=== PATIENT | male | born 1975 | race Caucasian/White ===

== ENCOUNTER → 2017-07-13 | Outpatient (CLI) | payer BC ==
[~2017-07-13] MED LIST: ACE3 PO; ACET-1966 PO; CHOL500025 PO; CLIN300C99 PO; DOCU-416 PO; FERR159T PO; HYDR-385 PO; IBUP-56 PO; IBUP100T52 PO; METH500T6 PO; MOM PO; MV-M1TAB19 PO; OMEG-11 PO; OMEG300C PO
[2017-07-13 09:27] LABS: LDL CHOLESTEROL 118 mg/dl
== END ==
LOC: LAB 08:45
PROVIDERS: ATTEND Family Medicine
DX: E55.9 Vitamin D deficiency, unspecified (principal)
CPT/HCPCS: 36415; 82040; 82247; 82306; 82310; 82374; 82435; 82465; 82565; 82947; 83718; 84075; 84132; 84155; 84295; 84450; 84460; 84478; 84520

== ENCOUNTER → 2018-03-22 | Outpatient (CLI) | payer BC ==
[2018-03-22 09:38] LABS: PLATELET COUNT, AUTOMATED 394 K/uL (150-450)
[2018-03-22 09:55] LABS: LDL CHOLESTEROL 111 mg/dl
== END ==
LOC: LAB 09:20
PROVIDERS: ATTEND Family Medicine
DX: E78.5 Hyperlipidemia, unspecified (principal); D50.9 Iron deficiency anemia, unspecified; E55.9 Vitamin D deficiency, unspecified
CPT/HCPCS: 36415; 82040; 82247; 82306; 82310; 82374; 82435; 82465; 82565; 82728; 82947; 83540; 83718; 84075; 84132; 84155; 84295; 84450; 84460; 84478; 84520; 85025

== ENCOUNTER → 2018-08-08 | Outpatient (CLI) | payer BC | LOC: RESP 08:11 | PROVIDERS: ATTEND Internal Medicine | DX: J98.4 Other disorders of lung (principal) | CPT/HCPCS: 94060; 94726; 94729 ==

== ENCOUNTER → 2018-08-16 | Outpatient (CLI) | payer BC | LOC: LAB 11:05 | PROVIDERS: ATTEND Internal Medicine | DX: R06.09 Other forms of dyspnea (principal) | CPT/HCPCS: 84439; 84443 ==

== ENCOUNTER → 2018-08-16 | Outpatient (CLI) | payer BC ==
[2018-08-16 11:24] LABS: PLATELET COUNT, AUTOMATED 392 K/uL (150-450)
[2018-08-16 11:36] LABS: LDL CHOLESTEROL 99 mg/dl
== END ==
LOC: LAB 11:03
PROVIDERS: ATTEND Family Medicine
DX: D50.9 Iron deficiency anemia, unspecified (principal); E55.9 Vitamin D deficiency, unspecified
CPT/HCPCS: 36415; 82040; 82247; 82306; 82310; 82374; 82435; 82465; 82565; 82947; 83718; 84075; 84132; 84155; 84295; 84450; 84460; 84478; 84520; 85025

== ENCOUNTER → 2018-08-24 | Outpatient (CLI) | payer BC | LOC: US 00:22 | PROVIDERS: ATTEND Internal Medicine | DX: R06.09 Other forms of dyspnea (principal) | CPT/HCPCS: 93306 ==